=== PATIENT | female | born 1960 | race Caucasian/White ===

== ENCOUNTER 2016-11-19 15:06 | Emergency (ER) | payer BC ==
[~2016-11-19] VITALS: Wt 100.0 kg
[~2016-11-19 15:06] MED LIST: HYDR25TA6 PO; LEVO125C PO; POTA10CA PO
[2016-11-19] MEDS ORDERED: FAMOTIDINE 20 MG INJ IV STA (18:19)
[2016-11-19] MEDS ORDERED: ONDANSETRON 4 MG INJ IV STA (18:19)
[2016-11-19] MEDS ORDERED: SOD CHLORIDE 0.9% 1,000 ML IV STA (18:19)
[2016-11-19 19:03] LABS: EOSINOPHILS # 0.1 10^3/ul (0.0-0.5); EOSINOPHILS % 1.1 % (0.0-7.0); HEMATOCRIT 38.7 % (37.0-47.0); HEMOGLOBIN 13.2 g/dl (12.0-16.0); LYMPHOCYTES # 1.4 10^3/ul (0.8-2.9); LYMPHOCYTES % 13.2 % (15.0-51.0); MEAN CORPUSCULAR HEMOGLOBIN 30.9 pg (29.0-33.0); MEAN CORPUSCULAR HGB CONC 34.1 g/dl (32.0-37.0); MEAN CORPUSCULAR VOLUME 90.6 fl (82.0-101.0); MEAN PLATELET VOLUME 8.7 fl (7.4-10.4); MONOCYTE # 0.5 10^3/ul (0.3-0.9); MONOCYTES % 4.7 % (0.0-11.0); NEUTROPHIL # 8.5 10^3/ul (1.6-7.5); PLATELET COUNT 313 10^3/UL (140-440); RED BLOOD COUNT 4.28 10^6/ul (4.20-5.40); RED CELL DISTRIBUTION WIDTH 13.5 % (11.5-14.5); UNCORRECTED WBC 10.5 10^3/ul (4.8-10.8); WHITE BLOOD COUNT 10.5 10^3/ul (4.8-10.8)
[2016-11-19 19:08] LABS: ALBUMIN 4.3 g/dl (3.3-4.9); POTASSIUM 4.7 mmol/L (3.5-5.1)
[2016-11-19 19:09] LABS: CONDITION 1
[2016-11-19 19:10] LABS: CREATININE 0.71 mg/dl (0.44-1.00)
[2016-11-19 19:11] LABS: ALBUMIN/GLOBULIN RATIO 1.07; BILIRUBIN,INDIRECT 0.3 mg/dl (0-1.1); BILIRUBIN,TOTAL 0.3 mg/dl (0.2-1.3); CALCIUM 8.8 mg/dl (8.4-10.2); TOTAL PROTEIN 8.3 g/dl (6.1-8.1)
[2016-11-19 19:20] LABS: ADD UMIC YES; URINE BILIRUBIN (Dip) NEGATIVE (NEGATIVE); URINE BLOOD (Dip) 1+ (NEGATIVE); URINE COLOR LT. YELLOW (YELLOW); URINE GLUCOSE (Dip) NEGATIVE (NEGATIVE); URINE KETONES (Dip) NEGATIVE (NEGATIVE); URINE LEUKOCYTE ESTERASE (Dip) TRACE (NEGATIVE); URINE NITRITE (Dip) NEGATIVE (NEGATIVE); URINE TOTAL PROTEIN (Dip) TRACE (NEGATIVE); URINE UROBILINOGEN (Dip) 0.2 E.U./dL (0.1-1.0)
[2016-11-19] MEDS ORDERED: LIDOCAINE/MYLANTA 40 ML BTL PO STA (19:27)
[2016-11-19 19:36] LABS: BACTERIA,URINE FEW
--- NOTE | 2016-11-19 20:00 | ERD ---
ER Documentation Chief Complaint Date/Time DATE: 11/19/16 TIME: 19:58 Chief Complaint abdominal pain for the past few hours with diarrhea and nausea. no cp/sob HPI This is a 56-year-old female who presents to the emergency room for evaluation of abdominal pain. Patient states his abdominal pain for the past day, she localizes to the epigastric region, states that she has had nausea vomiting and diarrhea associated with this. She came to the emergency room today for evaluation. She denies any radiation of the pain. ROS All systems reviewed and are negative except as per history of present illness. Medications Home Meds Reported Medications Hydrochlorothiazide (Hydrochlorothiazide) 25 Mg Tablet, PO DAILY 08/22/12 Potassium Chloride (Micro-K) 10 Meq Capsule.sa, PO DAILY 08/22/12 Levothyroxine Sodium (Tirosint) 125 Mcg Capsule, PO DAILY 08/22/12 Allergies Allergies: Coded Allergies: No Known Allergy (Unverified , 08/22/12) PMhx/Soc History of Surgery: Yes (HERNIA (DENIES PMH)) Anesthesia Reaction: No Hx Neurological Disorder: No Hx Respiratory Disorders: No Hx Cardiac Disorders: Yes (HTN) Hx Psychiatric Problems: No Hx Miscellaneous Medical Probl: Yes (DM) Hx Alcohol Use: No Hx Substance Use: No Hx Tobacco Use: No Smoking Status: Never smoker Physical Exam Vitals Vital Signs Date Time Temp Pulse Resp B/P Pulse Ox O2 Delivery O2 Flow Rate FiO2 11/19/16 18:21 98.7 118 20 138/98 99 Room Air 11/19/16 15:07 98.8 128 22 178/94 97 Physical Exam INITIAL VITAL SIGNS: Reviewed by me GENERAL: The patient is well developed and appropriate for usual state of health in no apparent distress HEENT: Pupils equal, round, and reactive to light. EOMI. There is no scleral icterus. NECK: C-spine is soft and supple, there is no meningismus. There is no cervical lymphadenopathy. LUNGS: Clear to auscultation bilaterally. There are no rales, wheezes or rhonchi. HEART: Regular rate and rhythm, no murmurs, clicks, rubs or gallops. ABDOMEN: Epigastric tenderness to palpation, negative Whitten sign, no CVAT, there are bowel sounds in all four quadrants. No rebound or guarding. EXTREMITIES: There is no peripheral cyanosis or edema. No focal swelling or erythema. NEUROLOGICAL: The patient moves all four extremities with 5/5 strength. Cranial nerves II - XII are intact. Normal gait. Alert and oriented SKIN: There is no apparent rash or petechiae. HEME/LYMPHATIC: There is no evidence of excessive bruising or lymphedema. PSYCHIATRIC: The patient does not appear anxious or depressed. Result Diagram: 11/19/16184911/19/161849 Results 24 hrs Laboratory Tests Test 11/19/16 18:50 11/19/16 19:05 Alanine Aminotransferase (ALT/SGPT) 37IU/L Albumin 4.3g/dl Albumin/Globulin Ratio 1.07 Alkaline Phosphatase 99IU/L Anion Gap 19 Aspartate Amino Transf (AST/SGOT) 31IU/L Basophils # 0.010^3/ul Basophils % 0.0% Blood Urea Nitrogen 14mg/dl Calcium Level 8.8mg/dl Carbon Dioxide Level 24mmol/L Chloride Level 105mmol/L Creatinine 0.71mg/dl Direct Bilirubin 0.00mg/dl Eosinophils # 0.110^3/ul Eosinophils % 1.1% Globulin 4.00g/dl Glucose Level 108mg/dl Hematocrit 38.7% Hemoglobin 13.2g/dl Indirect Bilirubin 0.3mg/dl Lipase 81U/L Lymphocytes # 1.410^3/ul Lymphocytes % 13.2% Mean Corpuscular Hemoglobin 30.9pg Mean Corpuscular Hemoglobin Concent 34.1g/dl Mean Corpuscular Volume 90.6fl Mean Platelet Volume 8.7fl Monocytes # 0.510^3/ul Monocytes % 4.7% Neutrophils # 8.510^3/ul Neutrophils % 81.0% Nucleated Red Blood Cells # 0.010^3/ul Nucleated Red Blood Cells % 0.0/100WBC Platelet Count 52982^3/UL Potassium Level 4.7mmol/L Red Blood Count 4.2810^6/ul Red Cell Distribution Width 13.5% Sodium Level 143mmol/L Total Bilirubin 0.3mg/dl Total Protein 8.3g/dl White Blood Count 10.510^3/ul Urine Bacteria FEW Urine Bilirubin NEGATIVE Urine Clarity CLEAR Urine Color LT. YELLOW Urine Epithelial Cells FEW Urine Glucose NEGATIVE% Urine Hemoglobin 1+ Urine Ketones NEGATIVE Urine Leukocyte Esterase TRACE Urine Microscopic RBC 2-5/HPF Urine Microscopic WBC 5-10/HPF Urine Nitrite NEGATIVE Urine Specific [place] >=1.030 Urine Total Protein TRACE Urine Urobilinogen 0.2 E.U./dL Urine pH 5.5 Current Medications Medications (Trade) Dose Ordered Sig/Loan Route PRN Reason Start Time Stop Time Status Last Admin Dose Admin Sodium Chloride (NS) 1,000 ml @ 1,000 mls/hr Q1H STAT IV 11/19/16 18:19 11/19/16 19:18 DC 11/19/16 19:08 Ondansetron HCl (Zofran Inj) 4 mg ONCE STAT IV 11/19/16 18:19 11/19/16 18:21 DC 11/19/16 19:07 Famotidine (Pepcid Iv) 20 mg ONCE STAT IV 11/19/16 18:19 11/19/16 18:21 DC 11/19/16 19:07 Miscellaneous Medication (Gi Cocktail (2)) 40 ml ONCE STAT PO 11/19/16 19:27 11/19/16 19:28 DC 11/19/16 19:46 Procedures/MDM This 56-year-old female presents to the emergency room for evaluation of abdominal pain. Patient did have epigastric tenderness to palpation on my examination, was given a GI cocktail along with Zofran and Pepcid. A pulmonary evaluation she states she is feeling much better. She has no leukocytosis, no signs of positive Whitten sign, no signs of obstruction, she has got bowel sounds all 4 quadrants, and will be discharged home with a prescription for Zantac for gastritis. Departure Diagnosis: Primary Impression: Nausea vomiting and diarrhea Additional Impressions: Abdominal pain Gastritis Condition: Stable ALEXYS EUGENE DO Nov 19, 2016 20:00
[2016-11-19] MEDS ORDERED: RANI150T9 PO (20:01)
[2016-11-19 20:10] VITALS: BP 143/66; PULSE 78; RESP 16; TEMP 98.6
== END 2016-11-19 20:10 | disposition home or self-care (01) ==
LOC: E/R 15:06
DX: R11.2 Nausea with vomiting, unspecified (principal); R19.7 Diarrhea, unspecified; K29.70 Gastritis, unspecified, without bleeding; I10 Essential (primary) hypertension; E11.9 Type 2 diabetes mellitus without complications
CPT/HCPCS: 80053; 81001; 81003; 83690; 85025; J2405; J7030; 96374; 96375